=== PATIENT | female | born 1955 | race African-American/Black ===

== ENCOUNTER 2024-12-26 11:30 | Emergency (ER) | payer MEDICARE, MEDICAID ==
[~2024-12-26] VITALS: Ht 152.4 cm; Wt 78.9 kg
[2024-12-26 11:41] VITALS: BP 152/90; PULSE 100; RESP 16; TEMP 37.1; O2SAT 96
[2024-12-26 12:49] LABS: CHLORIDE 104 mEq/L (98-107); POTASSIUM 3.6 mEq/L (3.5-5.1)
[2024-12-26 12:50] LABS: BASOPHILS % 0.5 % (0.0-2.0); DIFFERENTIAL COMMENT 0; EOSINOPHILS % 0.8 % (0.0-5.0); HEMATOCRIT. 42.3 % (36.0-48.0); HEMOGLOBIN. 13.9 g/dL (12.0-16.0); LYMPHOCYTES % 24.2 % (20.0-50.0); MEAN CORPUSCULAR HEMOGLOBIN 31.9 pg (28.0-32.0); MEAN CORPUSCULAR VOLUME 96.7 fL (81.0-99.0); MEAN PLATELET VOLUME 9.7 fl (7.4-10.4); NEUTROPHILS % 67.5 % (40.0-76.0); PLATELET 199 x1000/uL (130-400); RED BLOOD CELL COUNT 4.38 mill/uL (4.2-5.4); RED CELL DISTRIBUTION WIDTH 14.2 % (11.6-14.6); SODIUM 140 mEq/L (136-145); WHITE BLOOD COUNT 3.5 x1000/uL (4.5-11.0)
[2024-12-26 12:51] LABS: CALCIUM 9.8 mg/dL (8.7-10.4); CARBON DIOXIDE 27 mEq/L (21-32)
[2024-12-26] MEDS ORDERED: P20 PO (12:55)
[2024-12-26 12:56] LABS: CREATININE 0.7 mg/dL (0.6-1.0); GLUCOSE 111 mg/dL (70-105); UREA NITROGEN BLOOD 5 mg/dL (9-23)
[2024-12-26 12:57] LABS: TROPONIN I HIGH SENSITIVITY 5 ng/L (3.0-34)
[2024-12-26] MEDS: PREDNISONE 20MG TABLET PO ONE (13:45)
== END 2024-12-26 13:58 | disposition home or self-care (01) ==
LOC: ER 12:01
DX: J45.901 Unspecified asthma with (acute) exacerbation (principal); I10 Essential (primary) hypertension; Z79.52 Long term (current) use of systemic steroids; Z88.1 Allergy status to other antibiotic agents
CPT/HCPCS: 99285; 71045; 80048; 85025; 84484; 36415; 93005; J7512